=== PATIENT | female | born 1945 | race Caucasian/White ===

== ENCOUNTER 2021-02-06 14:41 | Inpatient (IN) | payer MEDICARE, OTHER ==
[~2021-02-06] VITALS: Ht 160 cm; Wt 71.7 kg
--- NOTE | 2021-02-06 14:52 | NUR ---
BIBRA 102 FOR GEN WEAKNESS, COUGH AND SOB. AMA-ED FROM [facility] 4 DAYS AGO, WAS HOSPITALIZED FOR 1.5 MONTH FOR COVID. THE PATIENT`S OXYGEN SATURATION IN ROOM AIR IS AT 84%. ATTACHED TO THE MONITOR. WILL CONTINUE TO MONITOR THE PATIENT.
--- NOTE | 2021-02-06 14:52 | NUR ---
THE PATIENT`S OXYGEN SATURATION IN ROOM AIR IS AT 84%. THE PATIENT IS PLACED ON OXYGEN. WILL CONTINUE TO MONITOR THE PATIENT.
--- NOTE | 2021-02-06 15:13 | NUR ---
AIR COMPRESSOR MECHANIC TO PT'S BEDSIDE
[2021-02-06] MEDS ORDERED: IV NS 0.9% 500 ML IV ONE (15:30)
--- NOTE | 2021-02-06 15:30 | NUR ---
R HAND #20G S/L; PATENT AND INTACT. BLOOD COLLECTED AND GIVEN TO LAB COVID PCR & INFLUENZA SWAB COLLECTED AND GIVEN TO LAB
[2021-02-06 16:08] LABS: BASOPHILS % (AUTO) 0.1 % (0.0-2.0); HEMATOCRIT 32 % (33-45); HEMOGLOBIN 10.7 g/dL (11.5-14.8); LYMPHOCYTES # (AUTO) 0.9 K/uL (0.8-4.8); LYMPHOCYTES % (AUTO) 13.5 % (20.0-44.0); MEAN CORPUSCULAR HGB CONC 34 g/dl (31.0-36.0); MEAN CORPUSCULAR VOLUME 91 fL (82-100); MONOCYTES # (AUTO) 0.2 K/uL (0.1-1.30); MONOCYTES % (AUTO) 2.8 % (2.0-12.0); NEUTROPHILS # (AUTO) 5.8 K/uL (1.8-8.9); NEUTROPHILS % (AUTO) 83.6 % (43.0-81.0); PLATELET COUNT (AUTO) 359 K/uL (150-450); RED BLOOD CELL COUNT(AUTO) 3.48 MIL/uL (4.0-5.2)
[2021-02-06] MEDS ORDERED: ANAS1TAB50 PO (16:16)
[2021-02-06] MEDS ORDERED: BUSP10TA35 PO (16:16)
[2021-02-06] MEDS ORDERED: APIX5TAB PO (16:16)
[2021-02-06] MEDS ORDERED: TRAZ-257 PO (16:16)
[2021-02-06] MEDS ORDERED: CARV6.252 PO (16:16)
[2021-02-06] MEDS ORDERED: OMEP1CAP25 PO (16:16)
[2021-02-06] MEDS ORDERED: PRED20TA PO (16:17)
[2021-02-06 16:26] LABS: D-DIMER 1.45 mg/L(FEU (0.17-0.50)
--- NOTE | 2021-02-06 16:26 | NUR ---
CALLED NURSING SUP REGARDING PT BED
[2021-02-06 16:49] LABS: CREATINE KINASE, TOTAL 61 U/L (26-192)
--- NOTE | 2021-02-06 16:49 | NUR ---
OXYGEN SATUTRATION IS AT 97% WITH OXYGEN DELIVERING AT 5L/MIN VIA NASAL CANNULA.
--- NOTE | 2021-02-06 16:49 | NUR ---
ROOM 114-2
--- NOTE | 2021-02-06 16:52 | NUR ---
REPORT GIVEN TO NURSE KUMAR FOR FLOYD
[2021-02-06 16:58] LABS: ALANINE AMINOTRANSFERASE 138 U/L (12-78); ALBUMIN 2.3 g/dL (3.4-5.0); ALKALINE PHOSPHATASE 102 U/L (46-116); ASPARTATE AMINOTRANSFERASE 38 U/L (15-37); BILIRUBIN,TOTAL 0.3 mg/dL (0.2-1.0); CALCIUM, SERUM 8.1 mg/dL (8.5-10.1); CARBON DIOXIDE 24 mmol/L (21-32); CHLORIDE 106 mmol/L (98-107); CREATININE 0.5 mg/dL (0.6-1.3); GLUCOSE 185 mg/dL (74-106); POTASSIUM 4.3 mmol/L (3.5-5.1); SODIUM SERUM 139 mmol/L (136-145); TOTAL PROTEIN, SERUM 6.3 g/dL (6.4-8.2); UREA NITROGEN, BLOOD 20 mg/dL (7-18)
[2021-02-06 17:02] LABS: C-REACTIVE PROTEIN 5.6 mg/dL (0.0-0.9)
[2021-02-06 17:09] LABS: BAND % (MANUAL) 2 % (0.0-5.0); LYMPHOCYTES % (MANUAL) 12 % (16-48); MONOCYTES % (MANUAL) 11 % (0-11.0); NEUTROPHILS % (MANUAL) 75 (42-76)
[2021-02-06] MEDS ORDERED: ONDANSETRON HCL/PF 4 MG/2 ML VIAL IVP PRN (17:30)
[2021-02-06] MEDS ORDERED: ACETAMINOPHEN 325 MG TABLET PO PRN (17:30)
[2021-02-06] MEDS ORDERED: AZITHROMYCIN 500 MG in IV D5W 250 ML IV ONE (17:30)
[2021-02-06] MEDS ORDERED: DEXTROSE 50%-WATER 50 ML DISP.SYRIN IV PRN (17:30)
[2021-02-06] MEDS ORDERED: CEFTRIAXONE 1GM BAG (ER ONLY) 50 ML IV ONE ×2 (17:30→18:13)
[2021-02-06] MEDS ORDERED: ALBUTEROL SULFATE 8 GM HFA.AER.AD IH PRN (17:30)
[2021-02-06] MEDS ORDERED: AZITHROMYCIN 500 MG in IV D5W 250 ML IV SCH (18:00)
[2021-02-06] MEDS ORDERED: IOHEXOL-350 100 ML VIAL IV ONE (18:06)
[2021-02-06] MEDS ORDERED: IV NS 0.9% 250 ML IV ONE (18:06)
--- NOTE | 2021-02-06 18:54 | NUR ---
PT TRANSFERRED TO [facility] 114-2 VIA ACLS PROTOCOL. ENDORSED FLOYD TO STACY. NOTIFIED PHARMACY TO BRING AZITHROMYCIN IVATB TO [facility]. ALL BELONGINGS WITH PT
--- NOTE | 2021-02-06 19:30 | NUR ---
SAS DEVELOPER OPENING NOTES: RECEIVED PATIENT FROM DAY SHIFT, PATIENT AWAKE IN BED, A/O X4, R. HAND #20 PATENT AND INTACT, ON NC, 2L, SATURATING AT 97%, TELE MONITOR SHOWS NSR. NO SIGNS OF DISTRESS, NO SOB, BED LOCKED AND IN POSITION, SIDE RAILS UP X2, BED AT LOWEST POSITION, CALL LIGHT WITHIN REACH, WILL CONTINUE TO MONITOR AND ADMINISTER NURSING INTERVENTIONS NECESSARY.
[2021-02-06] MEDS: BLOOD SUGAR DIAGNOSTIC 1 EACH STRIP VI SCH ×2 (22:16→22:25)
--- NOTE | 2021-02-06 22:16 | NUR ---
MAIL ORDER BILLER NOTES: PATIENT'S BLOOD SUGAR 137, ALREADY DONE EATING FOR THE NIGHT, WILL HOLD INSULIN PER PATIENT REQUEST
--- NOTE | 2021-02-07 06:41 | NUR ---
COAL FEEDER OPERATOR CLOSING NOTES: PATIENT IN BED, A/O X4, ON NC 5 L, SATURATING 97%, TELE MONITOR SHOWS NSR, R. HAND #20 PATENT AND INTACT, NO SIGNS OF SOB, NO DISTRESS NOTED, BED AT LOWEST POSITION, SIDE RAILS UP X2, BRAKES LOCKED AND IN POSITION, CALL LIGHT WITHIN REACH. WILL CONTINUE TO MONITOR AND ENDORSE TO DAY SHIFT NURSE.
--- NOTE | 2021-02-07 07:30 | NUR ---
RN NOTE REPORT REC'D AT BEDSIDE. PT IS AWAKE ALERT AND ORIENTEDX4. HAVING BREAKFAST IN BED. IN NO ACUTE DISTRESS. BREATHING EVEN AND UNLABORED. SL TO RHAND FLUSHED WELL. ASSUMED CARE PENDING THE COMING OF CORDELL LEAL'S PRIMARY RN. SAFETY MEASURES IN PLACE. CALL LIGHT WITHIN REACH. WILL CONTINUE TO MONITOR.
[2021-02-07] MEDS: INSULIN REGULAR, HUMAN 100 UNIT/ML 3 ML VIAL SQ PRN ×2 (07:51→17:47)
--- NOTE | 2021-02-07 08:10 | NUR ---
RN NOTE FADUMO OF RADIOLOGY CALLED IN RE: PULMONARY ANGIO PROCEDURE AND NEEDED AN IV PREFERABLY ON THE AC WITH G20. ENDORSED TO CORDELL PERRY.
[2021-02-07] MEDS: BLOOD SUGAR DIAGNOSTIC 1 EACH STRIP VI SCH ×4 (08:22→22:50)
[2021-02-07 08:34] LABS: ALANINE AMINOTRANSFERASE 113 U/L (12-78); ALBUMIN 2.2 g/dL (3.4-5.0); ALKALINE PHOSPHATASE 89 U/L (46-116); ASPARTATE AMINOTRANSFERASE 39 U/L (15-37); BILIRUBIN,TOTAL 0.3 mg/dL (0.2-1.0); CALCIUM, SERUM 8.1 mg/dL (8.5-10.1); CARBON DIOXIDE 25 mmol/L (21-32); CHLORIDE 106 mmol/L (98-107); CREATININE 0.5 mg/dL (0.6-1.3); GLUCOSE 84 mg/dL (74-106); POTASSIUM 3.5 mmol/L (3.5-5.1); SODIUM SERUM 141 mmol/L (136-145); TOTAL PROTEIN, SERUM 5.9 g/dL (6.4-8.2); UREA NITROGEN, BLOOD 15 mg/dL (7-18)
--- NOTE | 2021-02-07 08:45 | NUR ---
RN OPENING NOTE RECEIVE REPORT FROM NURSE. PATIENT IN STABLE CONDITION WITH NO SIGN OF DISTRESS. ON 5L OF OXYGEN VIA NC. O2 SAT IS 93% AND ABOVE. WILL FOLLOW UP AM LABS. PROPER ISOLATION PRECAUTION IN PLACE. ALL SAFETY MEASURE IN PLACE. BED ON LOWEST POSITION WITH HOB ELEVATED WITH 3 SIDE RAIL UP. BED ALARM ON. CALL LIGHT WITHIN REACH. WILL CONTINUE TO MONITOR.
[2021-02-07 08:51] LABS: BASOPHILS % (AUTO) 0.3 % (0.0-2.0); EOSINOPHILS % (AUTO) 0.2 % (0.0-6.0); HEMATOCRIT 30 % (33-45); HEMOGLOBIN 10.5 g/dL (11.5-14.8); LYMPHOCYTES # (AUTO) 1.5 K/uL (0.8-4.8); LYMPHOCYTES % (AUTO) 21.7 % (20.0-44.0); MEAN CORPUSCULAR HGB CONC 35 g/dl (31.0-36.0); MEAN CORPUSCULAR VOLUME 90 fL (82-100); MONOCYTES # (AUTO) 0.6 K/uL (0.1-1.30); MONOCYTES % (AUTO) 8.5 % (2.0-12.0); NEUTROPHILS # (AUTO) 4.8 K/uL (1.8-8.9); NEUTROPHILS % (AUTO) 69.3 % (43.0-81.0); PLATELET COUNT (AUTO) 360 K/uL (150-450); RED BLOOD CELL COUNT(AUTO) 3.33 MIL/uL (4.0-5.2); WHITE BLOOD COUNT (AUTO) 6.9 K/uL (4.3-11.0)
[2021-02-07] MEDS: DEXAMETHASONE SOD PHOSPHATE 10 MG/ML VIAL IV SCH (09:09)
[2021-02-07 09:34] LABS: LYMPHOCYTES % (MANUAL) 13 % (16-48); MONOCYTES % (MANUAL) 13 % (0-11.0); NEUTROPHILS % (MANUAL) 74 (42-76)
[2021-02-07 10:46] LABS: FERRITIN 758 ng/mL (8-388)
--- NOTE | 2021-02-07 14:11 | NUR ---
telephone quotation clerk note per dr jay jay butler to do ct chest without consult, radiologist notified
[2021-02-07 14:44] LABS: C-REACTIVE PROTEIN 4.8 mg/dL (0.0-0.9)
--- NOTE | 2021-02-07 15:20 | NUR ---
RN NOTE MID LINE WAS PLACED ON IVIS 18g BY DR. MAK LAWSON. FLUSH WELL.
[2021-02-07] MEDS ORDERED: CEFTRIAXONE 1 G in IV D5W 50 ML IV SCH (17:00)
[2021-02-07] MEDS ORDERED: AZITHROMYCIN 500 MG in IV D5W 250 ML IV SCH (18:00)
--- NOTE | 2021-02-07 18:40 | NUR ---
114 RN CLOSING NOTE PATIENT REMAIN IN STABLE CONDITION WITH NO SIGN OF DISTRESS THROUGH OUT SHIFT. PATIENT REMAIN ON NC AT 5L/MIN WITH O2 SAT OF 93% AND ABOVE. PATIENT HAD 20G MID LINE PLACE BY DR. MAK VENEGAS WELL. ABLE TO MOVE AND REPOSITION IN BED INDEPENDENTLY. CT CHEST WITOUT CONTRAST WAS DONE. PROPER ISOLATION PROTOCOL IN PLACE. ALL SAFETY MEASURE IN PLACE. BED ON LOWEST POSITION WITH HOB ELEVATED WITH 3 SIDE RAIL UP. CALL LIGHT WITHIN REACH. PATIENT REST COMFORTABLY IN BE. WILL CONTINUE TO MONITOR AND GIVE REPORT TO HEALTH SCIENCE INSTRUCTOR NURSE.
--- NOTE | 2021-02-07 19:30 | NUR ---
OVEN UNLOADER OPENING NOTES: RECEIVED PATIENT FROM DAY SHIFT, PATIENT IN BED, A/O X4, ON NC 5L, TOLERATING WELL, R. HAND #20 PATENT AND INTACT, NO SIGNS OF SOB, NO DISTRESS NOTED, TELE MONITOR SHOWS NSR, BED AT LOWEST POSITION, LOCKED AND IN PLACE, SIDE RAILS UP X2, CALL LIGHT WITHIN REACH. WILL CONTINUE TO MONITOR AND ADMINISTER NURSING INTERVENTIONS NECESSARY.
--- NOTE | 2021-02-07 22:49 | NUR ---
PRINCIPLE INDUSTRIAL HYGIENIST NOTES: BLOOD SUGAR AT 2200 - 131, PATIENT NOT EATING, DOES NOT WANT INSULIN.
--- NOTE | 2021-02-08 06:39 | NUR ---
PROJECT DEVELOPMENT ENGINEER CLOSING NOTES: PATIENT IN BED, SLEEPING, A/O X4, TELE MONITOR SHOWS NSR, R. HAND #20 PATENT AND INTACT, ON 5L NC, SATURATING 97%, NO SIGNS OF DISTRESS, NO SOB, BED AT LOWEST POSITION, BRAKES LOCKED AND IN PLACE, SIDE RAILS UP X2, CALL LIGHT WITHIN REACH. WILL CONTINUE TO MONITOR AND ENDORSE TO DAY SHIFT NURSE.
--- NOTE | 2021-02-08 07:50 | NUR ---
per [place] covid negative.
--- NOTE | 2021-02-08 07:59 | NUR ---
RN OPENING NOTE RECEIVE REPORT FROM AMMUNITION OFFICER NURSE. PATIENT IN STABLE CONDITION WITH NO SIGN OF DISTRESS AT TIME OF REPORT. PATIENT REMAIN ON 5L OF OXYGEN VIA NC. WILL ATTEMPT TO TITRATE OXYGEN DOWN AND MONITOR OXYGEN SAT. WILL FOLLOW UP AM LAB AND DOCTOR ORDERS. WILL FOLLOW UP MORNING LAB AND DR. ORDERS. PROPER ISOLATION PRECAUTION IN PLACE. ALL SAFETY MEASURE IN PLACE. BED ON LOWEST POSITION WITH HOB ELEVATED. CALL LIGHT WITHIN REACH. WILL CONTINUE TO MONITOR.
[2021-02-08] MEDS: BLOOD SUGAR DIAGNOSTIC 1 EACH STRIP VI SCH ×4 (08:03→21:53)
[2021-02-08] MEDS: DEXAMETHASONE SOD PHOSPHATE 10 MG/ML VIAL IV SCH (08:46)
[2021-02-08 09:20] LABS: BASOPHILS % (AUTO) 0.2 % (0.0-2.0); EOSINOPHILS % (AUTO) 0.1 % (0.0-6.0); HEMATOCRIT 29 % (33-45); HEMOGLOBIN 9.9 g/dL (11.5-14.8); LYMPHOCYTES # (AUTO) 1.7 K/uL (0.8-4.8); LYMPHOCYTES % (AUTO) 21.5 % (20.0-44.0); MEAN CORPUSCULAR HGB CONC 34 g/dl (31.0-36.0); MEAN CORPUSCULAR VOLUME 90 fL (82-100); MONOCYTES # (AUTO) 0.8 K/uL (0.1-1.30); MONOCYTES % (AUTO) 9.6 % (2.0-12.0); NEUTROPHILS # (AUTO) 5.3 K/uL (1.8-8.9); NEUTROPHILS % (AUTO) 68.6 % (43.0-81.0); PLATELET COUNT (AUTO) 381 K/uL (150-450); RED BLOOD CELL COUNT(AUTO) 3.19 MIL/uL (4.0-5.2); WHITE BLOOD COUNT (AUTO) 7.8 K/uL (4.3-11.0)
[2021-02-08] MEDS: INSULIN REGULAR, HUMAN 100 UNIT/ML 3 ML VIAL SQ PRN ×2 (12:01→17:14)
[2021-02-08 12:15] LABS: BAND % (MANUAL) 1 % (0.0-5.0); EOSINOPHILS % (MANUAL) 1 % (0-4); LYMPHOCYTES % (MANUAL) 20 % (16-48); MONOCYTES % (MANUAL) 11 % (0-11.0); NEUTROPHILS % (MANUAL) 67 (42-76)
[2021-02-08 14:09] LABS: ALANINE AMINOTRANSFERASE 105 U/L (12-78); ALBUMIN 2.2 g/dL (3.4-5.0); ALKALINE PHOSPHATASE 84 U/L (46-116); ASPARTATE AMINOTRANSFERASE 33 U/L (15-37); BILIRUBIN,TOTAL 0.3 mg/dL (0.2-1.0); CALCIUM, SERUM 6.4 mg/dL (8.5-10.1); CARBON DIOXIDE 25 mmol/L (21-32); CHLORIDE 106 mmol/L (98-107); CREATININE 0.4 mg/dL (0.6-1.3); GLUCOSE 105 mg/dL (74-106); MAGNESIUM 2.1 mg/dL (1.8-2.4); PHOSPHORUS 3.4 mg/dL (2.5-4.9); SODIUM SERUM 140 mmol/L (136-145); TOTAL PROTEIN, SERUM 5.9 g/dL (6.4-8.2); UREA NITROGEN, BLOOD 10 mg/dL (7-18)
[2021-02-08 14:33] LABS: CREATINE KINASE, TOTAL 44 U/L (26-192); FERRITIN 672 ng/mL (8-388)
--- NOTE | 2021-02-08 17:21 | NUR ---
RN NOTE RIGHT HAND IV REMOVED. NOT FUNCTIONING WELL. PATIENT HAVE RIGHT UPPER ARM MID LINE 18G.
--- NOTE | 2021-02-08 18:27 | NUR ---
NURSE CLOSING NOTE PATIENT REMAIN IN STABLE CONDITION WITH NO SIGN OF DISTRESS. OXYGEN DELIVERY VIA NC HAVE BEEN TITRATE DOWN FROM 5L TO 4L. PATIENT TOLERATE WELL WITH O2 SAT 95% AND ABOVE. PATIENT HAD ONE LARGE BOWEL MOVEMENT AND 4 VOID. HAVE BEEN DOWN GRADE FROM TELEMETRY MONITORING TO MEDSURG. PROPER ISOLATION PRECAUTION PROTOCOL IN PLACE. ALL SAFETY MEASURE IN PLACE. BED ON LOWEST POSITION WITH HOB ELEVATED. WITH 3 SIDE RAIL UP. BED ALARM ON. CALL LIGHT WITHIN REACH. PATIENT RESTING COMFORTABLY IN BED. WILL CONTINUE TO MONITOR AND GIVE REPORT TO DIRECTOR INDUSTRIAL RELATIONS NURSE.
--- NOTE | 2021-02-08 19:30 | NUR ---
MS RN NOTES RECEIVED TRANSFER FROM [facility] BY BED,A/O X4,HEBREW,SPEAK SOMALI,BREATHING REGULAR,NOT IN ANY FORM OF DISTRESS,O2 IN USED AT 3L/NC TO KEEP O2 SAT ABOVE 90%.AMBULATE WITH ASSIST,WITH RIGHT UPPER ARM MIDLINE FOR MEDS.CALL LIGHT IN REACH,NEEDS ANTICIPATED.
[2021-02-08 20:00] VITALS: BP 127/77
[2021-02-08] MEDS: *INSULIN REGULAR(HUMULIN R)HUM 100 UNIT/ML VIAL SQ PRN (21:59)
[2021-02-08 22:00] VITALS: BP 137/77
--- NOTE | 2021-02-08 22:00 | NUR ---
MS RN NOTES ACCU-CHECK BLOOD SUGAR CHECK 205,COVERED WITH HUMULIN R 4 UNITS PER SLIDING SCALE,WITH SNACKS AT BEDSIDE.
--- NOTE | 2021-02-09 06:00 | NUR ---
MS RN NOTES ACCU-CHECK BLOOD SUGAR CHECK 106,NO INSULIN COVERAGE
--- NOTE | 2021-02-09 06:21 | NUR ---
MS RN NOTES SLEPT WELL AT NIGHT,NO EPISODE OF SOB NOTED,AFEBRILE THRU OUT SHIFT,IN NO ACUTE DISTRESS,CALL LIGHT IN REACH,NEEDS ATTENDED.
[2021-02-09] MEDS: BLOOD SUGAR DIAGNOSTIC 1 EACH STRIP VI SCH ×4 (07:30→21:30)
--- NOTE | 2021-02-09 07:35 | NUR ---
MS RN OPENING NOTES RECEIVED PT IN BED ASLEEP, EASY TO AROUSE. ALERT AND ORIENTED X4. NO S/SX OF DISTRESS NOTED. NO SOB. BREATHING EVEN AND UNLABORED, TOLERATING WELL AT 3L VIA NASAL CANNULA TO KEEP O2 SAT ABOVE 90%. IV ACCESS ON IVIS ML #18 INTACT AND PATENT. SAFETY MEASURE IN PLACE WITH BED LOCKED AND IN LOWEST POSITION, SR UP X2, CALL LIGHT PLACED WITHIN EASY REACH. WILL CONTINUE TO MONITOR PT FOR CHANGES IN CONDITION.
[2021-02-09 08:00] VITALS: BP 130/70
[2021-02-09] MEDS: DEXAMETHASONE SOD PHOSPHATE 10 MG/ML VIAL IV SCH (08:16)
[2021-02-09] MEDS: INSULIN REGULAR, HUMAN 100 UNIT/ML 3 ML VIAL SQ PRN (12:14)
[2021-02-09 16:24] VITALS: BP 124/64
[2021-02-09] MEDS: *INSULIN REGULAR(HUMULIN R)HUM 100 UNIT/ML VIAL SQ PRN ×2 (17:11→21:38)
--- NOTE | 2021-02-09 18:56 | NUR ---
MS RN CLOSING NOTES PT IN BED AWAKE. NO S/SX OF DISTRESS NOTED. NO SOB. BREATHING EVEN AND UNLABORED, TOLERATING WELL AT 3L VIA NASAL CANNULA TO KEEP O2 SAT ABOVE 90%. IV ACCESS ON IVIS ML #18 INTACT AND PATENT. SAFETY MEASURE IN PLACE WITH BED LOCKED AND IN LOWEST POSITION, SR UP X2, CALL LIGHT PLACED WITHIN EASY REACH. ALL NEED MET THROUGHOUT SHIFT. WILL ENDORSE CONTINUITY OF CARE TO ONCOMING SHIFT.
--- NOTE | 2021-02-09 19:29 | NUR ---
MS RN OPENING NOTES RECEIVED PT IN BED AWAKE. A/O X4. NO SOB OR S/S OF RESPIRATORY DISTRESS NOTED. PT ON 3 LPM VIA NC, TOLERATING WELL, O2 SAT 92%. IV ACCESS ON IVIS MIDLINE #18, INTACT AND PATENT. SAFETY MEASURE IN PLACE. BED IN LOWEST LOCKED POSITION, HOB ELEVATED, SIDE RAILS UP X2, CALL LIGHT AND TABLE WITHIN REACH. WILL CONTINUE WITH PLAN OF CARE.
[2021-02-09 20:00] VITALS: BP_SYST 118; BP_SYST 130; BP_DIAS 79
[2021-02-10] MEDS: BLOOD SUGAR DIAGNOSTIC 1 EACH STRIP VI SCH ×4 (06:33→21:29)
--- NOTE | 2021-02-10 06:54 | NUR ---
MS RN CLOSING NOTES PT IN BED AWAKE. A/O X4. NO SOB S/S OF RESPIRATORY DISTRESS NOTED. BREATHING EVEN AND UNLABORED, TOLERATING WELL AT 5L VIA NASAL CANNULA TO KEEP O2 SAT ABOVE 90%. IV ACCESS ON IVIS ML #18 INTACT AND PATENT. SAFETY MEASURE IN PLACE WITH BED LOCKED AND IN LOWEST POSITION, SR UP X2, CALL LIGHT PLACED WITHIN EASY REACH. ALL NEED MET THROUGHOUT SHIFT. WILL ENDORSE CONTINUITY OF CARE TO ONCOMING SHIFT.
[2021-02-10 07:34] LABS: BASOPHILS # (AUTO) 0.2 K/uL (0.0-0.2); EOSINOPHILS % (AUTO) 0.1 % (0.0-6.0); HEMATOCRIT 31 % (33-45); HEMOGLOBIN 10.5 g/dL (11.5-14.8); LYMPHOCYTES # (AUTO) 2.3 K/uL (0.8-4.8); LYMPHOCYTES % (AUTO) 19.2 % (20.0-44.0); MEAN CORPUSCULAR HGB CONC 34 g/dl (31.0-36.0); MEAN CORPUSCULAR VOLUME 91 fL (82-100); MONOCYTES # (AUTO) 1.1 K/uL (0.1-1.30); MONOCYTES % (AUTO) 9.2 % (2.0-12.0); NEUTROPHILS # (AUTO) 8.3 K/uL (1.8-8.9); NEUTROPHILS % (AUTO) 69.5 % (43.0-81.0); PLATELET COUNT (AUTO) 449 K/uL (150-450)
--- NOTE | 2021-02-10 07:39 | NUR ---
MS RN OPENING NOTES RECEIVED PT IN BED ASLEEP, EASY TO AROUSE. ALERT AND ORIENTED X4. NO S/SX OF DISTRESS NOTED. NO SOB. BREATHING EVEN AND UNLABORED. TITRATED O2 TO 3L VIA NASAL CANNULA TO KEEP O2 SAT ABOVE 90%. IV ACCESS ON IVIS ML #18 INTACT AND PATENT. SAFETY MEASURE IN PLACE WITH BED LOCKED AND IN LOWEST POSITION, SR UP X2, CALL LIGHT PLACED WITHIN EASY REACH. WILL CONTINUE TO MONITOR PT FOR CHANGES IN CONDITION.
[2021-02-10 08:00] VITALS: BP 140/94
[2021-02-10] MEDS: DEXAMETHASONE SOD PHOSPHATE 10 MG/ML VIAL IV SCH (08:47)
[2021-02-10 10:05] LABS: ALBUMIN 2.5 g/dL (3.4-5.0); ALKALINE PHOSPHATASE 82 U/L (46-116); ASPARTATE AMINOTRANSFERASE 29 U/L (15-37); BILIRUBIN,TOTAL 0.3 mg/dL (0.2-1.0); CALCIUM, SERUM 8.3 mg/dL (8.5-10.1); CARBON DIOXIDE 25 mmol/L (21-32); CHLORIDE 105 mmol/L (98-107); CREATININE 0.4 mg/dL (0.6-1.3); GLUCOSE 89 mg/dL (74-106); PHOSPHORUS 3.1 mg/dL (2.5-4.9); POTASSIUM 4.2 mmol/L (3.5-5.1); SODIUM SERUM 139 mmol/L (136-145); TOTAL PROTEIN, SERUM 6.2 g/dL (6.4-8.2)
[2021-02-10 11:01] LABS: ALANINE AMINOTRANSFERASE 119 U/L (12-78); UREA NITROGEN, BLOOD 22 mg/dL (7-18)
[2021-02-10] MEDS: *INSULIN REGULAR(HUMULIN R)HUM 100 UNIT/ML VIAL SQ PRN ×2 (11:52→16:38)
[2021-02-10 12:42] LABS: BAND % (MANUAL) 4 % (0.0-5.0); LYMPHOCYTES % (MANUAL) 16 % (16-48); MONOCYTES % (MANUAL) 6 % (0-11.0); NEUTROPHILS % (MANUAL) 74 (42-76)
[2021-02-10 16:00] VITALS: BP 125/78
--- NOTE | 2021-02-10 18:53 | NUR ---
MS RN CLOSING NOTES PT IN BED AWAKE. NO S/SX OF DISTRESS NOTED. NO SOB. BREATHING EVEN AND UNLABORED, TOLERATING WELL AT 5L VIA NASAL CANNULA TO KEEP O2 SAT ABOVE 95%. IV ACCESS ON IVIS ML #18 INTACT AND PATENT. SAFETY MEASURE IN PLACE WITH BED LOCKED AND IN LOWEST POSITION, SR UP X2, CALL LIGHT PLACED WITHIN EASY REACH. ALL NEED MET THROUGHOUT SHIFT. WILL ENDORSE CONTINUITY OF CARE TO ONCOMING SHIFT.
--- NOTE | 2021-02-10 19:45 | NUR ---
MS RN NOTES RECEIVED LAYING ON BED,BREATHING NON LABORED,O2 SAT 96% ON 5L/NC.NO SOB.DAUGHTER AT BEDSIDE.WITH RIGHT UPPER MIDLINE FOR MEDS,NO COMPLAINTS AT THE MOMENT,ASSIST WITH ADL'S.CALL LIGHT IN REACH,NEEDS ANTICIPATED.
[2021-02-10 20:00] VITALS: BP 118/79
--- NOTE | 2021-02-11 01:00 | NUR ---
FOOD AND BEVERAGE ORDER CLERK NOTES SOUND ASLEEP,KEPT WARM AND COMFORTABLE.
--- NOTE | 2021-02-11 05:30 | NUR ---
MS RN NOTES ACCU-CHECK BLOOD SUGAR CHECK 84,NO INSULIN COVERAGE.
[2021-02-11] MEDS: BLOOD SUGAR DIAGNOSTIC 1 EACH STRIP VI SCH ×4 (05:56→21:46)
[2021-02-11 06:30] LABS: BASOPHILS % (AUTO) 0.3 % (0.0-2.0); EOSINOPHILS % (AUTO) 0.2 % (0.0-6.0); HEMATOCRIT 31 % (33-45); HEMOGLOBIN 10.5 g/dL (11.5-14.8); LYMPHOCYTES # (AUTO) 3.1 K/uL (0.8-4.8); LYMPHOCYTES % (AUTO) 22.1 % (20.0-44.0); MEAN CORPUSCULAR HGB CONC 34 g/dl (31.0-36.0); MEAN CORPUSCULAR VOLUME 89 fL (82-100); MONOCYTES # (AUTO) 1.4 K/uL (0.1-1.30); NEUTROPHILS # (AUTO) 9.3 K/uL (1.8-8.9); NEUTROPHILS % (AUTO) 67.4 % (43.0-81.0); PLATELET COUNT (AUTO) 427 K/uL (150-450); RED BLOOD CELL COUNT(AUTO) 3.42 MIL/uL (4.0-5.2); WHITE BLOOD COUNT (AUTO) 13.8 K/uL (4.3-11.0)
--- NOTE | 2021-02-11 06:40 | NUR ---
MS RN NOTES FAIRLY RESTED AT NIGHT,NO SOB,O2 IN USED,ASSIST WITH ADL'S.BLOOD SUGAR WITH IN NORMAL LIMITS.PLAN D/C TO [facility],AWAITING FOR ACCEPTANCE.IN NO ACUTE DISTRESS.
[2021-02-11 06:48] LABS: ALANINE AMINOTRANSFERASE 91 U/L (12-78); ALBUMIN 2.4 g/dL (3.4-5.0); ALKALINE PHOSPHATASE 76 U/L (46-116); ASPARTATE AMINOTRANSFERASE 21 U/L (15-37); BILIRUBIN,TOTAL 0.3 mg/dL (0.2-1.0); CALCIUM, SERUM 8.2 mg/dL (8.5-10.1); CARBON DIOXIDE 25 mmol/L (21-32); CHLORIDE 105 mmol/L (98-107); CREATININE 0.4 mg/dL (0.6-1.3); GLUCOSE 86 mg/dL (74-106); MAGNESIUM 2.1 mg/dL (1.8-2.4); PHOSPHORUS 3.6 mg/dL (2.5-4.9); SODIUM SERUM 140 mmol/L (136-145); UREA NITROGEN, BLOOD 20 mg/dL (7-18)
--- NOTE | 2021-02-11 07:43 | NUR ---
MS RN OPENING NOTES RECEIVED PATIENT IN BED, AWAKE, A/O X4. PATIENT ON OXYGEN THERAPY AT 5 LPM VIA NASAL CANULA. NO COMPLAINS OF PAIN. IVIS MIDLINE PRESENT AND INTACT. SAFETY PRECAUTIONS IN PLACE, BED IN LOW POSITION AND LOCKED, RAILS UP X2, CALL LIGHT WITHIN REACH. WILL CONTINUE TO MONITOR PATIENT.
[2021-02-11 08:00] VITALS: BP 140/95
[2021-02-11] MEDS: DEXAMETHASONE SOD PHOSPHATE 10 MG/ML VIAL IV SCH (08:44)
[2021-02-11 13:10] LABS: BAND % (MANUAL) 4 % (0.0-5.0); LYMPHOCYTES % (MANUAL) 24 % (16-48); MONOCYTES % (MANUAL) 8 % (0-11.0); NEUTROPHILS % (MANUAL) 64 (42-76)
[2021-02-11 16:00] VITALS: BP 128/81
--- NOTE | 2021-02-11 18:59 | NUR ---
MS RN CLOSING NOTES PATIENT REMAINS IN BED, AWAKE, A/O X4. PATIENT ON OXYGEN THERAPY AT 5 LPM VIA NASAL CANULA. NO COMPLAINS OF PAIN DURING THE DAY. IVIS MIDLINE PRESENT AND INTACT; SL. ALL NEEDS ATTENDED DURING THE DAY. SAFETY PRECAUTIONS IN PLACE, BED IN LOW POSITION AND LOCKED, RAILS UP X2, CALL LIGHT WITHIN REACH. WILL ENDORSE TO NET DEVELOPER CONSULTANT NURSE FOR FLOYD.
--- NOTE | 2021-02-11 19:30 | NUR ---
MS RN NOTES RECEIVED ON BED,A/O X4,O2 IN USED AT 5L/NC.O2 SAT 96 %.BREATHING NORMAL,SALINE LOCK RIGHT UPPER ARM INTACT AND PATENT.ASSISTED TO BEDSIDE COMMODE FOR #2,DAUGHTER AT BEDSIDE.FALL PRECAUTION OBSERVED,BED ON LOWEST POSITION AND LOCKED,CALL LIGHT IN REACH,NEEDS ANTICIPATED.
[2021-02-11 20:00] VITALS: BP 124/83
[2021-02-11 20:49] VITALS: BP 124/83
--- NOTE | 2021-02-11 21:45 | NUR ---
MS RN NOTES ACCU-CHECK BLOOD SUGAR CHECK 134,COVERED WITH HUMULIN R 2 UNITS PER SLIDING SCALE.
[2021-02-11] MEDS: *INSULIN REGULAR(HUMULIN R)HUM 100 UNIT/ML VIAL SQ PRN (21:49)
[2021-02-12] MEDS: BLOOD SUGAR DIAGNOSTIC 1 EACH STRIP VI SCH ×4 (05:41→21:58)
[2021-02-12 06:33] LABS: BASOPHILS # (AUTO) 0.1 K/uL (0.0-0.2); BASOPHILS % (AUTO) 0.4 % (0.0-2.0); EOSINOPHILS % (AUTO) 0.2 % (0.0-6.0); HEMATOCRIT 28 % (33-45); HEMOGLOBIN 9.9 g/dL (11.5-14.8); LYMPHOCYTES # (AUTO) 2.9 K/uL (0.8-4.8); LYMPHOCYTES % (AUTO) 23.8 % (20.0-44.0); MEAN CORPUSCULAR HGB CONC 35 g/dl (31.0-36.0); MEAN CORPUSCULAR VOLUME 89 fL (82-100); MONOCYTES # (AUTO) 1.2 K/uL (0.1-1.30); MONOCYTES % (AUTO) 9.4 % (2.0-12.0); NEUTROPHILS # (AUTO) 8.2 K/uL (1.8-8.9); NEUTROPHILS % (AUTO) 66.2 % (43.0-81.0); PLATELET COUNT (AUTO) 390 K/uL (150-450); RED BLOOD CELL COUNT(AUTO) 3.17 MIL/uL (4.0-5.2); WHITE BLOOD COUNT (AUTO) 12.3 K/uL (4.3-11.0)
--- NOTE | 2021-02-12 06:59 | NUR ---
MS RN NOTES NO SIGNIFICANT CHANGE IN STATUS,AWAITING D.C TO [facility].
--- NOTE | 2021-02-12 07:16 | NUR ---
MS RN OPENING NOTES RECEIVED PT IN BED ASLEEP, EASY TO AROUSE. ALERT AND ORIENTED X4. NO S/SX OF DISTRESS NOTED. NO SOB. BREATHING EVEN AND UNLABORED. O2 @ 5L VIA NASAL CANNULA TO KEEP O2 SAT ABOVE 90%. IV ACCESS ON IVIS ML #18 INTACT AND PATENT. SAFETY MEASURE IN PLACE WITH BED LOCKED AND IN LOWEST POSITION, SR UP X2, CALL LIGHT PLACED WITHIN EASY REACH. WILL CONTINUE TO MONITOR
[2021-02-12 07:22] LABS: CALCIUM, SERUM 8.6 mg/dL (8.5-10.1); CARBON DIOXIDE 28 mmol/L (21-32); CHLORIDE 104 mmol/L (98-107); CREATININE 0.5 mg/dL (0.6-1.3); GLUCOSE 90 mg/dL (74-106); POTASSIUM 3.9 mmol/L (3.5-5.1); SODIUM SERUM 139 mmol/L (136-145); UREA NITROGEN, BLOOD 26 mg/dL (7-18)
[2021-02-12 08:00] VITALS: BP 127/74
[2021-02-12] MEDS: DEXAMETHASONE SOD PHOSPHATE 10 MG/ML VIAL IV SCH (08:08)
[2021-02-12 16:00] VITALS: BP 144/78
[2021-02-12] MEDS: INSULIN REGULAR, HUMAN 100 UNIT/ML 3 ML VIAL SQ PRN (17:04)
--- NOTE | 2021-02-12 18:25 | NUR ---
MS RN CLOSING NOTES PT IN BED ASLEEP, EASY TO AROUSE. ALERT AND ORIENTED X4. NO S/SX OF DISTRESS NOTED. NO SOB. BREATHING EVEN AND UNLABORED. O2 @ 5L VIA NASAL CANNULA TO KEEP O2 SAT ABOVE 90%. IV ACCESS ON IVIS ML #18 INTACT AND PATENT. ALL MEDICATIONS GIVEN ORDERED. SAFETY MEASURE IN PLACE WITH BED LOCKED AND IN LOWEST POSITION, SR UP X2, CALL LIGHT PLACED WITHIN EASY REACH. WILL ENDORSE TO ONCOMING SHIFT
--- NOTE | 2021-02-12 19:30 | NUR ---
MS RN OPENING NOTES RECEIVED PT AWAKE IN BED. A/O X4. NO SOB OR S/S OF RESPIRATORY DISTRESS NOTED. O2 @ 5 LPM VIA NC TO KEEP O2 SAT ABOVE 90%. IV ACCESS ON IVIS ML 18 GAUGE, INTACT AND PATENT. SAFETY PRECAUTIONS IN PLACE. BED IN LOWEST LOCKED POSITION, HOB ELEVATED, SIDE RAILS UP X2, AND CALL LIGHT AND TABLE WITHIN REACH. WILL CONTINUE WITH PLAN OF CARE.
[2021-02-12 20:00] VITALS: BP 131/88
[2021-02-12] MEDS: *INSULIN REGULAR(HUMULIN R)HUM 100 UNIT/ML VIAL SQ PRN (22:07)
[2021-02-12 22:37] LABS: BAND % (MANUAL) 1 % (0.0-5.0); LYMPHOCYTES % (MANUAL) 12 % (16-48); METAMYELOCYTES % 3 % (0-0); MONOCYTES % (MANUAL) 13 % (0-11.0); NEUTROPHILS % (MANUAL) 61 (42-76); REACTIVE LYMPHOCYTES 10 % (0-0)
[2021-02-13] MEDS: BLOOD SUGAR DIAGNOSTIC 1 EACH STRIP VI SCH ×4 (06:32→22:00)
--- NOTE | 2021-02-13 07:01 | NUR ---
MS RN CLOSING NOTES PT IN BED ASLEEP, EASY TO AROUSE. A/O X4. NO SOB OR S/SX OF RESPIRATORY DISTRESS NOTED. BREATHING EVEN AND UNLABORED. O2 @ 5L VIA NASAL CANNULA TO KEEP O2 SAT ABOVE 90%. IV ACCESS ON IVIS ML #18 INTACT AND PATENT. ALL MEDICATIONS GIVEN ORDERED. SAFETY PRECAUTIONS IN PLACE AT ALL TIMES. BED IN LOWEST LOCKED POSITION, HOB ELEVATED, SIDE RAILS UP X2, AND CALL LIGHT AND TABLE WITHIN REACH. WILL ENDORSE TO ONCOMING NURSE FOR FLOYD.
[2021-02-13 07:02] LABS: BASOPHILS # (AUTO) 0.1 K/uL (0.0-0.2); BASOPHILS % (AUTO) 0.4 % (0.0-2.0); EOSINOPHILS % (AUTO) 0.1 % (0.0-6.0); HEMATOCRIT 29 % (33-45); LYMPHOCYTES # (AUTO) 3.3 K/uL (0.8-4.8); MEAN CORPUSCULAR HGB CONC 34 g/dl (31.0-36.0); MEAN CORPUSCULAR VOLUME 90 fL (82-100); MONOCYTES # (AUTO) 1.1 K/uL (0.1-1.30); MONOCYTES % (AUTO) 8.5 % (2.0-12.0); NEUTROPHILS # (AUTO) 8.6 K/uL (1.8-8.9); PLATELET COUNT (AUTO) 364 K/uL (150-450); RED BLOOD CELL COUNT(AUTO) 3.26 MIL/uL (4.0-5.2)
[2021-02-13 07:38] LABS: CALCIUM, SERUM 8.6 mg/dL (8.5-10.1); CARBON DIOXIDE 28 mmol/L (21-32); CHLORIDE 103 mmol/L (98-107); CREATININE 0.4 mg/dL (0.6-1.3); GLUCOSE 83 mg/dL (74-106); POTASSIUM 4.1 mmol/L (3.5-5.1); SODIUM SERUM 139 mmol/L (136-145); UREA NITROGEN, BLOOD 26 mg/dL (7-18)
[2021-02-13 08:00] VITALS: BP 138/82
[2021-02-13] MEDS: DEXAMETHASONE SOD PHOSPHATE 10 MG/ML VIAL IV SCH (08:15)
[2021-02-13] MEDS: INSULIN REGULAR, HUMAN 100 UNIT/ML 3 ML VIAL SQ PRN (11:47)
[2021-02-13 15:22] LABS: BAND % (MANUAL) 1 % (0.0-5.0); LYMPHOCYTES % (MANUAL) 28 % (16-48); MONOCYTES % (MANUAL) 8 % (0-11.0); NEUTROPHILS % (MANUAL) 63 (42-76)
[2021-02-13 16:00] VITALS: BP 137/78
[2021-02-13] MEDS: *INSULIN REGULAR(HUMULIN R)HUM 100 UNIT/ML VIAL SQ PRN ×2 (16:49→22:00)
[2021-02-13 20:00] VITALS: BP 129/58
--- NOTE | 2021-02-13 22:00 | NUR ---
RN NOTE PATIENT HAD BLOOD SUGAR OF 135 BUT REFUSED INSULIN. PT EDUCATED ABOUT THE RISKS AND BENEFITS BUT STILL REFUSED. NO S/S OF HYPO/HYPERGLYCEMIA NOTED AT THIS TIME. WILL CONTINUE TO MONITOR.
[2021-02-14] MEDS: BLOOD SUGAR DIAGNOSTIC 1 EACH STRIP VI SCH ×4 (06:34→21:14)
--- NOTE | 2021-02-14 06:40 | NUR ---
MS RN CLOSING NOTES PT IN BED EYES CLOSED, EASY TO AROUSE. A/O X4. NO SOB OR S/SX OF RESPIRATORY DISTRESS NOTED. BREATHING EVEN AND UNLABORED. O2 @ 4L VIA NASAL CANNULA TO KEEP O2 SAT ABOVE 90%. IV ACCESS ON IVIS ML #18 INTACT AND PATENT. ALL MEDICATIONS GIVEN ORDERED. SAFETY PRECAUTIONS IN PLACE AT ALL TIMES. BED IN LOWEST LOCKED POSITION, HOB ELEVATED, SIDE RAILS UP X2, AND CALL LIGHT AND TABLE WITHIN REACH. WILL ENDORSE TO ONCOMING NURSE FOR FLOYD.
[2021-02-14 06:47] LABS: BASOPHILS # (AUTO) 0.1 K/uL (0.0-0.2); BASOPHILS % (AUTO) 0.4 % (0.0-2.0); EOSINOPHILS % (AUTO) 0.1 % (0.0-6.0); HEMATOCRIT 29 % (33-45); LYMPHOCYTES # (AUTO) 3.3 K/uL (0.8-4.8); LYMPHOCYTES % (AUTO) 23.1 % (20.0-44.0); MEAN CORPUSCULAR HGB CONC 34 g/dl (31.0-36.0); MEAN CORPUSCULAR VOLUME 90 fL (82-100); MONOCYTES # (AUTO) 1.1 K/uL (0.1-1.30); MONOCYTES % (AUTO) 7.8 % (2.0-12.0); NEUTROPHILS # (AUTO) 9.8 K/uL (1.8-8.9); NEUTROPHILS % (AUTO) 68.6 % (43.0-81.0); PLATELET COUNT (AUTO) 352 K/uL (150-450); RED BLOOD CELL COUNT(AUTO) 3.26 MIL/uL (4.0-5.2); WHITE BLOOD COUNT (AUTO) 14.3 K/uL (4.3-11.0)
[2021-02-14 07:16] LABS: CALCIUM, SERUM 8.4 mg/dL (8.5-10.1); CARBON DIOXIDE 27 mmol/L (21-32); CHLORIDE 104 mmol/L (98-107); CREATININE 0.4 mg/dL (0.6-1.3); GLUCOSE 91 mg/dL (74-106); SODIUM SERUM 139 mmol/L (136-145); UREA NITROGEN, BLOOD 26 mg/dL (7-18)
--- NOTE | 2021-02-14 07:26 | NUR ---
RN OPENING NOTE- PT AWAKE IN BED. A/O X4. NO SOB OR S/S OF RESPIRATORY DISTRESS NOTED. O2 @ 4LPM VIA NC TO KEEP O2 SAT ABOVE 90%. PT TO BE TITRATED TODAY. IV ACCESS ON IVIS ML 18 GAUGE. SAFETY PRECAUTIONS IN PLACE. BED IN LOWEST LOCKED POSITION, HOB ELEVATED, SIDE RAILS UP X2, AND CALL LIGHT AND TABLE WITHIN REACH. WILL CONTINUE WITH PLAN OF CARE.
[2021-02-14 08:28] VITALS: BP 127/76
[2021-02-14] MEDS: DEXAMETHASONE SOD PHOSPHATE 10 MG/ML VIAL IV SCH (08:31)
[2021-02-14] MEDS ORDERED: busPIRone HCL 10 MG TABLET PO SCH (09:00)
[2021-02-14] MEDS ORDERED: Medication Not On Formulary EA (Omeprazole/Sodium Bicarbonate (Omeprazole-Bicarb 40-1,10 PO SCH (09:00)
[2021-02-14] MEDS: APIXABAN 5 MG TABLET PO SCH ×2 (10:03→17:58)
[2021-02-14] MEDS: CARVEDILOL 6.25 MG TABLET PO SCH ×2 (10:04→17:00)
[2021-02-14] MEDS: ANASTROZOLE 1 MG TABLET PO SCH (10:04)
[2021-02-14] MEDS: busPIRone 5 MG TABLET PO SCH ×2 (10:35→17:59)
[2021-02-14] MEDS: INSULIN REGULAR, HUMAN 100 UNIT/ML 3 ML VIAL SQ PRN ×2 (11:44→17:25)
[2021-02-14 14:01] LABS: BAND % (MANUAL) 1 % (0.0-5.0); LYMPHOCYTES % (MANUAL) 23 % (16-48); METAMYELOCYTES % 1 % (0-0); MONOCYTES % (MANUAL) 9 % (0-11.0); NEUTROPHILS % (MANUAL) 66 (42-76)
[2021-02-14 16:13] VITALS: BP 105/67
--- NOTE | 2021-02-14 18:26 | NUR ---
RN CLOSING NOTE- PT AWAKE IN BED. A/O X4. NO SOB OR S/S OF RESPIRATORY DISTRESS NOTED. O2 TITRATED TODAY FROM 4LPM TO 3LPM,. PT SATURATION >90% MAINTAINED. INCENTIVE SPIROMETER PROVIDED AND ENCOURAGED. IV ACCESS ON IVIS ML 18 GAUGE. SAFETY PRECAUTIONS IN PLACE. BED IN LOWEST LOCKED POSITION, HOB ELEVATED, SIDE RAILS UP X2, AND CALL LIGHT AND TABLE WITHIN REACH. WILL CONTINUE WITH PLAN OF CARE.
--- NOTE | 2021-02-14 19:25 | NUR ---
MS RN OPENING NOTE PATIENT RECEIVED AWAKE IN BED. A/OX4. NO S/S OF DISTRESS, BREATHING SYMMETRICAL. IVIS MIDLINE PATENT. SAFETY MEASURES IN PLACE: BED AT LOWEST POSITION, RAILS UP X2, CALL BROWN WITHIN REACH. WILL CONTINUE TO MONITOR PATIENT.
[2021-02-14 20:00] VITALS: BP 134/90
[2021-02-14] MEDS: TRAZODONE 50 MG TABLET PO SCH ×2 (21:15→21:21)
[2021-02-14] MEDS: *INSULIN REGULAR(HUMULIN R)HUM 100 UNIT/ML VIAL SQ PRN (22:43)
[2021-02-15] MEDS: BLOOD SUGAR DIAGNOSTIC 1 EACH STRIP VI SCH ×4 (06:38→22:57)
[2021-02-15] MEDS: INSULIN REGULAR, HUMAN 100 UNIT/ML 3 ML VIAL SQ PRN ×4 (06:39→23:09)
--- NOTE | 2021-02-15 06:53 | NUR ---
MS RN CLOSING NOTE PATIENT IS ASLEEP IN BED. A/OX4. NO S/S OF DISTRESS, BREATHING SYMMETRICAL. IVIS MIDLINE PATENT. SAFETY MEASURES IN PLACE: BED AT LOWEST POSITION, RAILS UP X2, CALL BROWN WITHIN REACH. WILL ENDORSE TO NEXT SHIFT FOR FLOYD.
[2021-02-15 07:30] LABS: BASOPHILS % (AUTO) 0.3 % (0.0-2.0); EOSINOPHILS % (AUTO) 0.1 % (0.0-6.0); HEMATOCRIT 30 % (33-45); HEMOGLOBIN 10.3 g/dL (11.5-14.8); LYMPHOCYTES # (AUTO) 3.5 K/uL (0.8-4.8); LYMPHOCYTES % (AUTO) 25.9 % (20.0-44.0); MEAN CORPUSCULAR HGB CONC 34 g/dl (31.0-36.0); MEAN CORPUSCULAR VOLUME 91 fL (82-100); MONOCYTES # (AUTO) 1.3 K/uL (0.1-1.30); MONOCYTES % (AUTO) 9.6 % (2.0-12.0); NEUTROPHILS # (AUTO) 8.6 K/uL (1.8-8.9); NEUTROPHILS % (AUTO) 64.1 % (43.0-81.0); PLATELET COUNT (AUTO) 351 K/uL (150-450); RED BLOOD CELL COUNT(AUTO) 3.33 MIL/uL (4.0-5.2); WHITE BLOOD COUNT (AUTO) 13.4 K/uL (4.3-11.0)
[2021-02-15 07:44] LABS: CALCIUM, SERUM 8.3 mg/dL (8.5-10.1); CARBON DIOXIDE 25 mmol/L (21-32); CHLORIDE 106 mmol/L (98-107); CREATININE 0.5 mg/dL (0.6-1.3); GLUCOSE 93 mg/dL (74-106); POTASSIUM 3.8 mmol/L (3.5-5.1); SODIUM SERUM 141 mmol/L (136-145); UREA NITROGEN, BLOOD 31 mg/dL (7-18)
--- NOTE | 2021-02-15 07:45 | NUR ---
RN NOTES PATIENT SEEN BY DR. TORRES, MADE AWARE OF PLAN OF CARE. PER MD, OK TO KEEP PATIENT'S O2 SAT BETWEEN 88-92%, MAY TITRATE DOWN O2 PATIENT TOLERATES.
[2021-02-15] MEDS: SODIUM BICARBONATE 650 MG TABLET PO SCH (08:13)
[2021-02-15] MEDS: PANTOPRAZOLE 40 MG TABLET.DR PO SCH (08:13)
[2021-02-15] MEDS: busPIRone 5 MG TABLET PO SCH ×2 (08:13→16:01)
[2021-02-15] MEDS: ANASTROZOLE 1 MG TABLET PO SCH (08:13)
[2021-02-15] MEDS: CARVEDILOL 6.25 MG TABLET PO SCH ×2 (08:14→16:00)
[2021-02-15] MEDS: DEXAMETHASONE SOD PHOSPHATE 10 MG/ML VIAL IV SCH (08:14)
[2021-02-15] MEDS: APIXABAN 5 MG TABLET PO SCH ×2 (08:15→16:45)
[2021-02-15 08:32] VITALS: BP 136/89
[2021-02-15 16:13] VITALS: BP 109/72
--- NOTE | 2021-02-15 17:27 | NUR ---
RN NOTES ATTEMPTED TO TITRATE DOWN O2 BUT PATIENT REQUESTED IF IT CAN BE DONE TOMORROW INSTEAD. NO SOB NOR RESPIRATORY DISTRESS AT THIS TIME. FABRICIO, OVERHAULER BUS TRUCK, DROPPED OFF FORM FOR O2 FOR MD TO SIGN TOMORROW. DTR/FAMILY AT BEDSIDE TO VISIT THE PATIENT.
--- NOTE | 2021-02-15 18:54 | NUR ---
RN NOTES PATIENT RESTING IN BED AWAKE AND VERBALLY RESPONSIVE. CONTINUES ON O2 AT 3LPM VIA NC, NO RESPIRATORY DISTRESS NOTED. ABLE TO PERFORM ADLS W/ MIN ASSIST. IV LINE INTACT AND PATENT. SAFETY MEASURES MAINTAINED. WILL ENDORSE TO SENIOR ORACLE SOA DEVELOPER RN FOR FLOYD.
[2021-02-15 20:00] VITALS: BP 138/78
--- NOTE | 2021-02-15 20:38 | NUR ---
RECEIVED PATIENT IN BED, ALERT/ORIENTED X4, 3LPM VIA NC, NO SOB, NO COMPLAIN OF PAIN, COVID NEGATIVE, REMINDED BY DAUGHTER NOT TO GIVE TRAZODONE, KEPT SAFE, WILL CONTINUE TO MONITOR.
[2021-02-15] MEDS: TRAZODONE 50 MG TABLET PO SCH (22:00)
[2021-02-16] MEDS: BLOOD SUGAR DIAGNOSTIC 1 EACH STRIP VI SCH ×2 (06:36→11:44)
[2021-02-16 06:37] LABS: BASOPHILS % (AUTO) 0.2 % (0.0-2.0); EOSINOPHILS % (AUTO) 0.1 % (0.0-6.0); HEMATOCRIT 30 % (33-45); HEMOGLOBIN 10.2 g/dL (11.5-14.8); LYMPHOCYTES # (AUTO) 3.6 K/uL (0.8-4.8); LYMPHOCYTES % (AUTO) 25.1 % (20.0-44.0); MEAN CORPUSCULAR HGB CONC 35 g/dl (31.0-36.0); MEAN CORPUSCULAR VOLUME 91 fL (82-100); MONOCYTES # (AUTO) 1.4 K/uL (0.1-1.30); MONOCYTES % (AUTO) 9.4 % (2.0-12.0); NEUTROPHILS # (AUTO) 9.4 K/uL (1.8-8.9); NEUTROPHILS % (AUTO) 65.2 % (43.0-81.0); PLATELET COUNT (AUTO) 328 K/uL (150-450); RED BLOOD CELL COUNT(AUTO) 3.27 MIL/uL (4.0-5.2); WHITE BLOOD COUNT (AUTO) 14.5 K/uL (4.3-11.0)
[2021-02-16] MEDS: INSULIN REGULAR, HUMAN 100 UNIT/ML 3 ML VIAL SQ PRN ×2 (06:37→11:45)
--- NOTE | 2021-02-16 07:18 | NUR ---
RN NOTES PATIENT WATCHING TV IN BED, NOT IN ACUTE DISTRESS. VERBALLY RESPONSIVE, ABLE TO MAKE NEEDS KNOWN. ENDORSEMENT FROM FILM PROCESSING SUPERVISOR RECEIVED. SAFETY MEASURES IN PLACE. WILL CONTINUE TO MONITOR.
[2021-02-16] MEDS: PANTOPRAZOLE 40 MG TABLET.DR PO SCH (07:30)
[2021-02-16] MEDS ORDERED: APIX5TAB PO (07:46)
--- NOTE | 2021-02-16 07:46 | NUR ---
RN NOTES PATIENT SEEN BY DR. TORRES TODAY, MADE AWARE OF PLAN OF CARE. TITRATED O2 TO 2L VIA NC, SATURATION IN THE LOW 90'S TO 94%, NO SOB NOR RESPIRATORY DISTRESS.
[2021-02-16 07:53] LABS: CALCIUM, SERUM 8.2 mg/dL (8.5-10.1); CARBON DIOXIDE 26 mmol/L (21-32); CHLORIDE 105 mmol/L (98-107); CREATININE 0.5 mg/dL (0.6-1.3); GLUCOSE 102 mg/dL (74-106); POTASSIUM 4.1 mmol/L (3.5-5.1); SODIUM SERUM 139 mmol/L (136-145); UREA NITROGEN, BLOOD 27 mg/dL (7-18)
[2021-02-16 08:00] VITALS: BP 154/86
[2021-02-16] MEDS: DEXAMETHASONE SOD PHOSPHATE 10 MG/ML VIAL IV SCH (08:02)
[2021-02-16] MEDS: CARVEDILOL 6.25 MG TABLET PO SCH ×2 (08:03→16:07)
[2021-02-16] MEDS: busPIRone 5 MG TABLET PO SCH ×2 (08:03→16:06)
[2021-02-16] MEDS: SODIUM BICARBONATE 650 MG TABLET PO SCH (08:03)
[2021-02-16] MEDS: ANASTROZOLE 1 MG TABLET PO SCH (08:03)
[2021-02-16] MEDS: APIXABAN 5 MG TABLET PO SCH ×2 (08:04→16:07)
--- NOTE | 2021-02-16 15:15 | NUR ---
RN NOTES DTR AT BEDSIDE TO PICKUP PATIENT.
[2021-02-16 16:07] VITALS: BP 126/81
--- NOTE | 2021-02-16 16:35 | NUR ---
RN NOTES PATIENT DISCHARGED TO HOME TODAY W/ HOME HEALTH FOLLOW-UP. DISCHARGE INSTRUCTION AND EDUCATION GIVEN TO PATIENT AND DTR. DISCHARGE FORM AND BELONGINGS LIST FORM SIGNED BY PATIENT AND ALL BELONGINGS ACCOUNTED FOR. NO SKIN ISSUES NOTED. NAME ARMBAND AND IV LINE REMOVED. PATIENT W/ PORTABLE O2 TANK BROUGHT BY DTR. PATIENT ASSISTED TO THE WHEELCHAIR AND ACCOMPANIED TO THE LOBBY. PICKED UP BY DTR VIA PRIVATE CAR. CHARGE NURSE AND MD AWARE OF DISCHARGE.
== END 2021-02-16 16:15 | disposition home health service (06) | DRG 189 ==
LOC: ER 14:49 → TELE1 17:02 → MEDSG1 02-08 14:29 → MED 02-08 19:13
PROVIDERS: ADMIT Nurse Practitioner Acute Care; ATTEND Family Medicine
PROC: 05HB33Z Insertion of Infusion Device into Right Basilic Vein, Percutaneous Approach (ICD-10-PCS; principal; 2021-02-08)
DX: J96.21 Acute and chronic respiratory failure with hypoxia (principal); E44.0 Moderate protein-calorie malnutrition; J84.10 Pulmonary fibrosis, unspecified; E11.9 Type 2 diabetes mellitus without complications; I10 Essential (primary) hypertension; E78.5 Hyperlipidemia, unspecified; Z79.899 Other long term (current) drug therapy; Z90.10 Acquired absence of unspecified breast and nipple; Z85.3 Personal history of malignant neoplasm of breast; Z79.01 Long term (current) use of anticoagulants; Z79.811 Long term (current) use of aromatase inhibitors; Z87.891 Personal history of nicotine dependence; R79.89 Other specified abnormal findings of blood chemistry; I70.0 Atherosclerosis of aorta; Z99.81 Dependence on supplemental oxygen; R74.01 Elevation of levels of liver transaminase levels; U09.9 Post COVID-19 condition, unspecified
CPT/HCPCS: 36415; 71045-TC; 71250-TC; 80048-TC; 80053-TC; 82550-TC; 82728-TC; 82962-TC; 83605-TC; 83615-TC; 83735-TC; 83880; 84100-TC; 84484-TC; 85025-TC; 85378-TC; 85730-TC; 86140-TC; 87040-TC; 87081-TC; 93970-TC; 97116-TC; 97530-TC; G0378; J0456; J0696; J1100; J1815; J7030; J7050; J7060; Q9967; U0003

== ENCOUNTER 2021-04-07 00:49 | Inpatient (IN) | payer MEDICARE, OTHER ==
[~2021-04-07] VITALS: Ht 152.4 cm; Wt 71.2 kg
[~2021-04-07 00:49] MED LIST: ANAS1TAB50 PO; APIX5TAB PO; BUSP10TA35 PO; CARV6.252 PO; OMEP1CAP25 PO; TRAZ-257 PO
--- NOTE | 2021-04-07 01:03 | NUR ---
RICHARD 40 FROM HOME FOR C/O COUGH AND SOBX 1 WEEK. ON O2 AT 2-3LPM VIA NC AT BASELINE. PT ALERT AND ORIENTED X 4 BREATHING EVEN AND UNLABORED. PLACED ON MONITOR AND ALL V/S STABLE O2 SAT 100%.
--- NOTE | 2021-04-07 01:20 | NUR ---
BEAUTY OPERATOR APPRENTICE AT PT'S BEDSIDE
[2021-04-07] MEDS ORDERED: ALBUTEROL FS 2.5 MG/3 ML VIAL.NEB CONTNEB ONE (01:30)
[2021-04-07] MEDS ORDERED: methylPREDNISolone SOD SUCC 125 MG/2ML VIAL IV ONE (01:30)
[2021-04-07] MEDS ORDERED: IPRATROPIUM NEB FS 0.5 MG/2.5 ML AMPUL.NEB NEB ONE (01:30)
[2021-04-07] MEDS ORDERED: IPRATROPIUM NEB FS 0.5 MG/2.5 ML AMPUL.NEB ONE (01:40)
[2021-04-07] MEDS ORDERED: ALBUTEROL FS 2.5 MG/3 ML VIAL.NEB ONE (01:40)
[2021-04-07 01:42] LABS: BASOPHILS # (AUTO) 0.1 K/uL (0.0-0.2); BASOPHILS % (AUTO) 0.8 % (0.0-2.0); EOSINOPHILS % (AUTO) 5.4 % (0.0-6.0); HEMATOCRIT 32 % (33-45); LYMPHOCYTES # (AUTO) 2.6 K/uL (0.8-4.8); LYMPHOCYTES % (AUTO) 30.2 % (20.0-44.0); MEAN CORPUSCULAR HGB CONC 34 g/dl (31.0-36.0); MEAN CORPUSCULAR VOLUME 88 fL (82-100); MONOCYTES # (AUTO) 0.9 K/uL (0.1-1.30); MONOCYTES % (AUTO) 9.9 % (2.0-12.0); NEUTROPHILS # (AUTO) 4.7 K/uL (1.8-8.9); NEUTROPHILS % (AUTO) 53.7 % (43.0-81.0); PLATELET COUNT (AUTO) 390 K/uL (150-450); RED BLOOD CELL COUNT(AUTO) 3.69 MIL/uL (4.0-5.2); WHITE BLOOD COUNT (AUTO) 8.7 K/uL (4.3-11.0)
[2021-04-07] MEDS ORDERED: methylPREDNISolone SOD SUCC 125 MG/2ML VIAL ONE (01:59)
--- NOTE | 2021-04-07 02:05 | NUR ---
RT AT PT'S BEDSIDE
[2021-04-07 03:23] LABS: CALCIUM, SERUM 9.2 mg/dL (8.5-10.1); CARBON DIOXIDE 26 mmol/L (21-32); CHLORIDE 105 mmol/L (98-107); CREATININE 0.6 mg/dL (0.6-1.3); GLUCOSE 116 mg/dL (74-106); SODIUM SERUM 140 mmol/L (136-145); UREA NITROGEN, BLOOD 14 mg/dL (7-18)
--- NOTE | 2021-04-07 03:27 | NUR ---
MRSA SWAB COLLECTED AND SENT TO LAB. PATIENT'S BELONGINGS LIST DONE.
[2021-04-07 03:40] LABS: ALANINE AMINOTRANSFERASE 32 U/L (12-78); ALBUMIN 3.3 g/dL (3.4-5.0); ALKALINE PHOSPHATASE 51 U/L (46-116); ASPARTATE AMINOTRANSFERASE 25 U/L (15-37); BILIRUBIN,DIRECT 0.1 mg/dL (0.0-0.2); BILIRUBIN,TOTAL 0.3 mg/dL (0.2-1.0); TOTAL PROTEIN, SERUM 6.9 g/dL (6.4-8.2)
[2021-04-07] MEDS ORDERED: ZOLPIDEM TARTRATE 5 MG TABLET PO PRN (04:00)
[2021-04-07] MEDS ORDERED: ONDANSETRON HCL/PF 4 MG/2 ML VIAL IVP PRN (04:00)
[2021-04-07] MEDS ORDERED: Z GUARD REMEDY 4 OZ OINT TP PRN (04:00)
[2021-04-07] MEDS ORDERED: MAG HYDROX/AL HYDROX/SIMETH 30 ML UDC PO PRN (04:00)
[2021-04-07] MEDS ORDERED: ACETAMINOPHEN 325 MG TABLET PO PRN (04:00)
[2021-04-07] MEDS ORDERED: MAGNESIUM HYDROXIDE 30 ML UDC PO PRN (04:00)
[2021-04-07] MEDS ORDERED: LEVOFLOXACIN 500 MG /D5W 100ML 100 ML IV ONE (05:41)
[2021-04-07] MEDS ORDERED: methylPREDNISolone SOD SUCC 40 MG/ML VIAL ONE (05:41)
[2021-04-07] MEDS: LEVOFLOXACIN 500 MG /D5W 100ML 500 MG in PREMIX 1 EA IV SCH (05:55)
[2021-04-07] MEDS: methylPREDNISolone SOD SUCC 40 MG/ML VIAL IV SCH ×3 (05:55→21:25)
[2021-04-07] MEDS ORDERED: PANTOPRAZOLE 40 MG TABLET.DR PO ONE ×2 (07:27→07:38)
--- NOTE | 2021-04-07 07:28 | NUR ---
IV ESTABLISHED L WRIST 22G. CONVERTED TO SALINE LOCK.
[2021-04-07] MEDS: PANTOPRAZOLE 40 MG TABLET.DR PO SCH (07:33)
[2021-04-07] MEDS ORDERED: APIXABAN 2.5 MG TABLET ONE (07:37)
[2021-04-07] MEDS ORDERED: CARVEDILOL 6.25 MG TABLET ONE (07:38)
--- NOTE | 2021-04-07 08:01 | NUR ---
bed assigned 108
--- NOTE | 2021-04-07 08:06 | NUR ---
REPORT GIVEN TO NURSE FONSECA FOR FLOYD
--- NOTE | 2021-04-07 08:27 | NUR ---
THE PATIENT IS TRANSFERED TO ROOM 108 IN STABLE CONDITION AND PER ACLS POLICY
[2021-04-07] MEDS ORDERED: busPIRone HCL 10 MG TABLET PO SCH (09:00)
--- NOTE | 2021-04-07 09:00 | NUR ---
TELE/TELETYPE MECHANIC NOTES RECEIVED PATIENT A TRANSFER FROM ER VIA [facility]. PATIENT IS ALERT AND ORIENTED X3, ABLE TO MAKE NEEDS KNOWN. ON OXYGEN AT 3 LPM VIA NASAL CANNULA. SKIN IS INTACT. OCCITAN SPEAKING BUT SPEAKS AND UNDERSTANDS LITTLE CITIZEN OF [place]. PATIENT IS AMBULATORY WITH STAND BY ASSIST. IV ACCESS ON LEFT WRIST #22G IS INTACT AND PATENT ON SALINE LOCK. ORIENTED PATIENT TO THE UNIT. SAFETY MEASURES IN PLACED: BED LOCKED ON LOWEST POSITION, SIDE RAILS UPX2, CALL LIGHT WITHIN REACH. WILL CONTINUE TO MONITOR.
[2021-04-07] MEDS: ALBUTEROL HALF STRENGTH 1.25 MG/3 ML VIAL.NEB NEB SCH ×3 (09:44→19:30)
[2021-04-07] MEDS ORDERED: busPIRone 5 MG TABLET PO SCH (09:45)
[2021-04-07] MEDS: CARVEDILOL 6.25 MG TABLET PO SCH ×2 (09:45→16:52)
[2021-04-07] MEDS: APIXABAN 5 MG TABLET PO SCH ×2 (09:46→16:52)
[2021-04-07] MEDS: ANASTROZOLE 1 MG TABLET PO SCH (09:47)
[2021-04-07] MEDS: IPRATROPIUM NEB FS 0.5 MG/2.5 ML AMPUL.NEB NEB SCH ×3 (10:00→19:30)
[2021-04-07] MEDS: busPIRone 5 MG TABLET PO SCH (16:50)
--- NOTE | 2021-04-07 20:00 | NUR ---
DINING CAR STEWARD NOTE PT IN BED A/O X 3, GERMAN SPEAKING. NO SOB, NO DISTRESS OR DISCOMFORT NOTED. DENIES PAIN. ON O2 3L VIA N/C O2 SAT 99%. ON TELE ST HR 105. SL ON LT WRIST #22 G INTACT AND PATENT. ALL NEEDS ATTENDED. SIDE RAILS UP X 2 AND CALL LIGHT WITHIN REACH. VSS. CONTINUE TO MONITOR HER.
[2021-04-07] MEDS: TRAZODONE 50 MG TABLET PO SCH (21:25)
[2021-04-08] MEDS: IPRATROPIUM NEB FS 0.5 MG/2.5 ML AMPUL.NEB NEB SCH ×4 (01:30→19:30)
[2021-04-08] MEDS: ALBUTEROL HALF STRENGTH 1.25 MG/3 ML VIAL.NEB NEB SCH ×4 (01:30→19:30)
--- NOTE | 2021-04-08 02:17 | NUR ---
RT NOTE TX NOT GIVEN DUE TO PENDING PCR RESULTS. NO RESPIRATORY DISTRESS NOTED. RN NOTIFIED.
[2021-04-08] MEDS: methylPREDNISolone SOD SUCC 40 MG/ML VIAL IV SCH ×3 (04:15→21:22)
[2021-04-08 06:41] LABS: BASOPHILS % (AUTO) 0.1 % (0.0-2.0); HEMATOCRIT 33 % (33-45); LYMPHOCYTES # (AUTO) 1.5 K/uL (0.8-4.8); LYMPHOCYTES % (AUTO) 16.9 % (20.0-44.0); MEAN CORPUSCULAR HGB CONC 33 g/dl (31.0-36.0); MEAN CORPUSCULAR VOLUME 87 fL (82-100); MONOCYTES # (AUTO) 0.4 K/uL (0.1-1.30); PLATELET COUNT (AUTO) 445 K/uL (150-450); RED BLOOD CELL COUNT(AUTO) 3.82 MIL/uL (4.0-5.2); WHITE BLOOD COUNT (AUTO) 8.8 K/uL (4.3-11.0)
--- NOTE | 2021-04-08 07:24 | NUR ---
BUTTON BRADDER NOTE PT IN BED A/O X 3, RESTING IN BED COMFORTABLY AT THIS TIME , NO SOB, NO DISTRESS OR DISCOMFORT NOTED. DENIES PAIN. ON O2 3L VIA N/C O2 SAT 99%. ON TELE SR HT 81, HL ON LT WRIST #22 G INTACT AND PATENT. ALL NEEDS ATTENDED. SIDE RAILS UP X 2 AND CALL LIGHT WITHIN REACH.. CONTINUE TO MONITOR HER. BED IN ,LOWEST AND LOCKED POSITION , WILL CONT TO MONITOR
[2021-04-08] MEDS: PANTOPRAZOLE 40 MG TABLET.DR PO SCH (07:30)
[2021-04-08] MEDS: busPIRone 5 MG TABLET PO SCH ×2 (08:21→17:00)
[2021-04-08] MEDS: CARVEDILOL 6.25 MG TABLET PO SCH ×2 (08:21→17:00)
[2021-04-08] MEDS: ANASTROZOLE 1 MG TABLET PO SCH (08:21)
[2021-04-08] MEDS: APIXABAN 5 MG TABLET PO SCH ×2 (08:22→17:52)
[2021-04-08] MEDS: LEVOFLOXACIN 500 MG /D5W 100ML 500 MG in PREMIX 1 EA IV SCH (08:29)
[2021-04-08 09:14] VITALS: BP 112/56
--- NOTE | 2021-04-08 10:39 | NUR ---
television script writer note dr montero at bedside updated with patient condition , will f\u
[2021-04-08 11:46] LABS: CALCIUM, SERUM 9.1 mg/dL (8.5-10.1); CREATININE 0.8 mg/dL (0.6-1.3); MAGNESIUM 2.2 mg/dL (1.8-2.4)
[2021-04-08 12:00] VITALS: BP 107/55
--- NOTE | 2021-04-08 13:40 | NUR ---
telegrapher agent ote offered to palce other iv hl due to old one site patient complain pain and discomfort , but patient strongly refused ,will cont to encourage it ,will f\u
[2021-04-08 16:00] VITALS: BP 115/70
--- NOTE | 2021-04-08 18:36 | NUR ---
telemetry monitor note all needs attended, on o2 as ordered ,not in distress
--- NOTE | 2021-04-08 19:24 | NUR ---
CAUSTIC ROOM ATTENDANT NOTE PT IN BED A/O X 3 SETSWANA AND BURKINAN SPEAKING. RESTING IN BED COMFORTABLY AT THIS TIME , NO SOB, NO DISTRESS OR DISCOMFORT NOTED. DENIES PAIN. ON O2 3L VIA N/C O2 SAT 99%. ON TELE SR HT 8, HL ON LT WRIST #22 G INTACT AND PATENT. ALL. ENVIRONMENTAL AND ISOLATION PRECAUTIONS TAKEN. ALL ENVIRONMENTAL PRECAUTIONS TAKEN, SIDE RAILS UP X 2 AND CALL LIGHT WITHIN REACH, BED LOW AND LOCKED POSITION , WILL CONT TO MONITOR
--- NOTE | 2021-04-08 19:42 | NUR ---
RT NOTE TX NOT GIVEN DUE TO PENDING PCR RESULTS. NO RESPIRATORY DISTRESS NOTED. RN NOTIFIED.
[2021-04-08 20:00] VITALS: BP 123/74
[2021-04-08] MEDS: TRAZODONE 50 MG TABLET PO SCH (21:21)
[2021-04-09] VITALS: BP 116/60
[2021-04-09] MEDS: IPRATROPIUM NEB FS 0.5 MG/2.5 ML AMPUL.NEB NEB SCH ×2 (01:16→07:35)
[2021-04-09] MEDS: ALBUTEROL HALF STRENGTH 1.25 MG/3 ML VIAL.NEB NEB SCH ×2 (01:16→07:35)
[2021-04-09 04:00] VITALS: BP 119/72
[2021-04-09] MEDS: methylPREDNISolone SOD SUCC 40 MG/ML VIAL IV SCH (05:17)
--- NOTE | 2021-04-09 06:11 | NUR ---
RN CLOSING NOTES PATIENT REMAINS IN BED COMFORTABLY RESTING,WITH NO DISTRESS OR PAIN. COMPLETED TWO HOUR CHECKS CONSISTENTLY THROUGHOUT THE NIGHT AND GAVE ALL MEDICATION. PATIENT DECLINED TO HAVE NEW IV INSERTED SINCE THE ONE ON HER LEFT HAND IS HURTING HER. THE IV SITE DOES NOT LOOK INFILTRATED OR SWOLLEN, FLUSHES WELL AND IS PATENT. BED IN LOW POSITION, LOCKED, WITH CALL LIGHT IN REACH. WILL ENDORSE PLAN OF CARE TO AM NURSE.
--- NOTE | 2021-04-09 07:30 | NUR ---
RN OPENING NOTE PATIENT IS IN BED COMFORTABLY RESTING,WITH NO DISTRESS OR PAIN. PATIENT ON 3LPM VIA NC TOLERATING WELL WITH O2SAT OF 97%. PATIENT HAS L HAND PIV INTACT AND PATENT WITH NO SIGN OF INFILTRATION. BED IN LOW POSITION, LOCKED, WITH CALL LIGHT IN REACH. ALL SAFETY MEASURES NOTED AND ACCOUNTED FOR. WILL CONTINUE TO MONITOR.
[2021-04-09 08:00] VITALS: BP 118/62
[2021-04-09] MEDS: LEVOFLOXACIN 500 MG /D5W 100ML 500 MG in PREMIX 1 EA IV SCH (08:04)
[2021-04-09 08:05] VITALS: BP 119/72
[2021-04-09] MEDS: CARVEDILOL 6.25 MG TABLET PO SCH (08:05)
[2021-04-09] MEDS: ANASTROZOLE 1 MG TABLET PO SCH (08:06)
[2021-04-09] MEDS: busPIRone 5 MG TABLET PO SCH (08:06)
[2021-04-09] MEDS: PANTOPRAZOLE 40 MG TABLET.DR PO SCH (08:06)
[2021-04-09] MEDS: APIXABAN 5 MG TABLET PO SCH (08:08)
[2021-04-09] MEDS ORDERED: ALBU18HF2 INH (10:08)
[2021-04-09] MEDS ORDERED: CARV6.252 PO (10:08)
[2021-04-09] MEDS ORDERED: APIX5TAB PO (10:08)
[2021-04-09] MEDS ORDERED: LEVO750T46 PO (10:08)
[2021-04-09] MEDS ORDERED: FLUT1BLS IH (10:08)
--- NOTE | 2021-04-09 11:00 | NUR ---
SENIOR MARKET INTELLIGENCE CONSULTANT NOTE PATIENT DISCHARGED HOME PER MD ORDER. PATIENT ON 3LPM VIA NC TOLERATING WELL WITH O2SAT OF 97%. PATIENT L HAND IV REMOVED AND BANDAGED WITH NO SIGN OF BLEEDING. PATIENT DAUGHTER ACCEPTED PATIENT BELONGINGS. PATIENT AND DAUGHTER MADE AWARE OF MD DISCHARGE ORDERS AND VERBALLY CONFIRMED THEIR UNDERSTANDING. PATIENT STABLE WITH NO SIGN OF DISTRESS UPON DISCHARGE.
[2021-04-10] MEDS ORDERED: methylPREDNISolone SOD SUCC 40 MG/ML VIAL IV SCH (09:00)
== END 2021-04-09 11:27 | disposition home or self-care (01) | DRG 189 ==
LOC: ER 00:50 → TRANSITION 04:37 → TELE1 08:03
PROVIDERS: ADMIT Hospitalist; ATTEND Internal Medicine
DX: J96.21 Acute and chronic respiratory failure with hypoxia (principal); J84.9 Interstitial pulmonary disease, unspecified; E44.1 Mild protein-calorie malnutrition; I10 Essential (primary) hypertension; Z79.01 Long term (current) use of anticoagulants; Z86.16 Personal history of COVID-19; Z90.10 Acquired absence of unspecified breast and nipple; Z85.3 Personal history of malignant neoplasm of breast; E11.9 Type 2 diabetes mellitus without complications; D64.9 Anemia, unspecified; E66.9 Obesity, unspecified; E78.5 Hyperlipidemia, unspecified; F32.A Depression, unspecified; Z90.13 Acquired absence of bilateral breasts and nipples; E88.09 Other disorders of plasma-protein metabolism, not elsewhere classified; Z68.30 Body mass index [BMI] 30.0-30.9, adult; Z20.822 Contact with and (suspected) exposure to COVID-19; Z87.01 Personal history of pneumonia (recurrent); Z99.81 Dependence on supplemental oxygen
CPT/HCPCS: 36415; 71045-TC; 80048-TC; 80076-TC; 83735-TC; 83880; 84100-TC; 84484-TC; 85025-TC; 87081-TC; 94799-TC; A4216; G0378; J1956; J2405; J2920; J2930; J7050; U0003